=== PATIENT | female | born 2000 | race Caucasian/White ===

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

== ENCOUNTER 2019-07-25 15:33 | Outpatient (CLI) | payer OTHER ==
--- NOTE | 2019-07-25 17:33 | MRI Report ---
Reason: PAIN IN RT KNEE Procedure Date: 07/25/2019 Accession Number: [id number] / [id number] Procedure: MRI - Knee RT W/O CPT Code: Final Report FULL RESULT: EXAM: RIGHT KNEE MRI WITHOUT CONTRAST EXAM DATE: 07/25/2019 04:17 PM. CLINICAL HISTORY: Pain in right knee. COMPARISON: None. TECHNIQUE: Multiplanar, multisequence T1-weighted and fluid-sensitive sequences of the knee without contrast. Other: None. FINDINGS: Bones: No fractures or subluxations. No marrow edema. No bone lesions. Articular Cartilage: Unremarkable. Medial Meniscus: The medial meniscus is intact. Lateral Meniscus: The lateral meniscus is intact. Cruciate Ligaments: Mild edema and subtle intrasubstance distortion in the mid to distal anterior cruciate ligament. Majority of the fibers are intact. Posterior cruciate ligament normal in morphology. Collateral Ligaments: The medial collateral and lateral collateral ligamentous structures are intact. Tendons: The quadriceps, patellar, semimembranosus, and popliteus tendons are unremarkable. Musculature: No fatty atrophy. Subtle edema in the lateral head gastrocnemius muscle. Other: Minimal joint effusion. Minimal popliteal cyst.No loose bodies.The medial and lateral retinacula are intact. Subcutaneous soft tissues unremarkable. Mild edema in the superior lateral aspect of Hoffa's fat pad and to a lesser extent lateral pre-femoral fat pad. IMPRESSION: 1. Grade 1-2 sprain anterior cruciate ligament, likely subacute. Recommend correlate with history of trauma and mechanism of injury. 2. Mild strain lateral head gastrocnemius muscle. 3. Reactive edema versus impingement in the superior lateral aspect of Hoffa's fat pad and lateral pre-femoral fat pad. 4. Minimal joint effusion. 5. Menisci and collateral ligaments intact. [facility]
== END 2019-07-25 15:34 | disposition home or self-care (01) ==
LOC: DI 15:33
PROVIDERS: ATTEND Student in an Organized Health Care Education/Training Program
DX: S83.511A Sprain of anterior cruciate ligament of right knee, initial encounter (principal); M25.461 Effusion, right knee; S86.111A Strain of other muscle(s) and tendon(s) of posterior muscle group at lower leg level, right leg, initial encounter

== ENCOUNTER 2019-10-20 06:19 | Emergency (ER) | payer OTHER ==
[2019-10-20] MEDS ORDERED: IBUPROFEN 800 MG TABLET PO STA (06:29)
[2019-10-20] MEDS ORDERED: ONDANSETRON ODT 4 MG TABLET TL STA (06:29)
--- NOTE | 2019-10-20 06:37 | ED Physician Documentation ---
PD HPI FEMALE - Stated complaint Stated Complaint: FEMALE - Chief complaint Chief Complaint: Abd Pain - History obtained from History obtained from: Patient (Patient presented to the emergency room with severe abdominal cramps secondary to onset of menstrual period. Started early in the morning and has used 2 tampons over last to 3 hours. Patient is currently on control pill. This is her off week. She is expecting menstrual period however is never been this heavy or painful.She also feels nauseated because of the severe cramp and vomited once. No fever no chills no hematuria no dysuria. Last sexual intercourse was on Thursday and it was not painful. This is unusual for her and the menstral Blood has also been much heavier.) - History of Present Illness Timing - duration: Days (1) Timing - details: Gradual onset Review of Systems Ten Systems: 10 systems reviewed and negative Constitutional: reports: Reviewed and negative Eyes: reports: Reviewed and negative Ears: reports: Reviewed and negative Nose: reports: Reviewed and negative Throat: reports: Reviewed and negative Cardiac: reports: Reviewed and negative Respiratory: reports: Reviewed and negative GI: reports: Abdominal Pain, Nausea, Vomiting, Reviewed and negative : reports: Vaginal bleeding, Irregular menses Skin: reports: Reviewed and negative Musculoskeletal: reports: Reviewed and negative Neurologic: reports: Reviewed and negative Psychiatric: reports: Reviewed and negative Endocrine: reports: Reviewed and negative Immunocompromised: reports: Reviewed and negative PD PAST MEDICAL HISTORY - Past Medical History 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 - Past Surgical History Past Surgical History: No - Present Medications Home Medications: Ambulatory Orders Medication Instructions Recorded Confirmed Bcp 10/20/19 Ibuprofen 800 mg PO Q8HR #30 tablet 10/20/19 Ondansetron Odt [Zofran] 4 mg TL Q6H PRN #10 tablet 10/20/19 - Allergies Allergies/Adverse Reactions: Allergies Allergy/AdvReac Type Severity Reaction Status Date / Time No Known Drug Allergies Allergy Verified 10/20/19 06:35 - Social History Does the pt smoke?: No Smoking Status: Never smoker Does the pt drink ETOH?: No Does the pt have substance abuse?: No PD ED PE NORMAL - Vitals Vital signs reviewed: Yes - General General: Alert and oriented X 3, Other (Mild disstress because of abdominal pain) - HEENT HEENT: PERRL - Neck Neck: Supple, no meningeal sign - Cardiac Cardiac: RRR, No murmur - Respiratory Respiratory: Clear bilaterally - Abdomen Abdomen: Normal bowel sounds, Soft, Non distended, Other (Suprapubic area discomfort, central, mild guarding on deep palpation,) - Female Female : Other (QThick examination externally did not reveal any lesion. There is regular menstrual bleed. (Chaperoned by a female registered nurse)) - Derm Derm: Warm and dry - Extremities Extremities: No deformity - Neuro Neuro: Alert and oriented X 3 Eye Opening: Spontaneous Motor: Obeys Commands Verbal: Oriented GCS Score: 15 - Psych Psych: Normal mood, Normal affect Results - Vitals Vitals: Vital Signs - 24 hr 10/20/19 06:20 Temperature 36.8 C Heart Rate 76 Respiratory 16 Rate Blood Pressure 126/75 O2 Saturation 100 Oxygen O2 Source Room air - Labs Labs: Laboratory Tests 10/20/19 06:35 Urine Color YELLOW Urine Clarity CLEAR Urine pH 6.0 Ur Specific [place] 1.025 Urine Protein NEGATIVE Urine Glucose (UA) NEGATIVE Urine Ketones NEGATIVE Urine Occult Blood TRACE-INTA Urine Nitrite NEGATIVE Urine Bilirubin NEGATIVE Urine Urobilinogen 0.2 (NORMAL) Ur Leukocyte Esterase NEGATIVE Ur Microscopic Review NOT INDICATED Urine Culture Comments NOT INDICATED Urine HCG, Qual NEGATIVE PD MEDICAL DECISION MAKING - ED course ED course: Patient is experiencing menorrhalgia that is more excessive than usual. This is her off week while taking the control pill. She is expecting her menstrual period, however it is more painful than usual. She is reassessed at 650 and disclosed negative urinalysis and negative test. She is assured. She is asked to continue monitoring the amount of Menstrual output and continue taking ibuprofen 800 mg 3 times daily as needed. She will be given 2 to 3 days of work and follow-up with primary care doctor. If menstrual severe and painful, return to the emergency room for further management. Departure - Departure Disposition: 01 Home, Self Care Clinical Impression: Menorrhagia Qualifiers: Menorrahagia type: with onset of menstrual periods Qualified Code(s): N92.2 - Excessive menstruation at puberty Condition: Stable Instructions: Abdominal Pain Follow-Up: MALACHI ELY MD [Primary Care Provider] - Prescriptions: Ibuprofen 800 mg PO Q8HR #30 tablet Ondansetron Odt [Zofran] 4 mg TL Q6H PRN #10 tablet PRN Reason: Nausea / Vomiting Comments: Please monitor the amount of menstrual blood by counting the number of pads. Take ibuprofen 800 mg every 8 hours as needed for pain control. Zofran 4 mg sublingual for nausea. Take the next 2 days off and resume back to duty if you can tolerate it. Forms: Activity restrictions
[2019-10-20 06:43] LABS: BILIRUBIN,URINE NEGATIVE (NEGATIVE); GLUCOSE, URINE (UA) NEGATIVE (NEGATIVE); KETONES,URINE (UA) NEGATIVE (NEGATIVE); LEUKOCYTE ESTERASE, URINE NEGATIVE (NEGATIVE); NITRITE,URINE NEGATIVE (NEGATIVE); OCCULT BLOOD,URINE TRACE-INTA (NEGATIVE); PROTEIN,URINE NEGATIVE (NEGATIVE); UROBILINOGEN,URINE 0.2 (NORMAL) E.U./dL (NORMAL)
[2019-10-20 06:45] LABS: CLARITY,URINE CLEAR (CLEAR); HCG UR QUAL NEGATIVE
[2019-10-20 07:06] VITALS: BP 118/69
== END 2019-10-20 07:06 | disposition home or self-care (01) ==
LOC: ED 06:19
DX: N92.0 Excessive and frequent menstruation with regular cycle (principal)
CPT/HCPCS: 51701; 81003; 81025; 99283; 99284; A9270; Q0162; 81001; 87086

== ENCOUNTER 2020-02-20 15:11 | Emergency (ER) | payer OTHER ==
[2020-02-20 15:38] LABS: BASOPHILS % (AUTO) 0.4 %; EOSINOPHILS % (AUTO) 0.4 %; LYMPHOCYTES # (AUTO) 1.4 10^3/uL (1.5-3.5); LYMPHOCYTES % (AUTO) 13.1 %; MEAN CORPUSCULAR HEMOGLOBIN 28.8 pg (27.0-31.0); MEAN CORPUSCULAR HGB CONC 33.1 g/dL (32.0-36.0); MEAN CORPUSCULAR VOLUME 87.2 fL (81.0-99.0); MEAN PLATELET VOLUME 8.3 fL (7.9-10.8); MONOCYTES # (AUTO) 0.5 10^3/uL (0.0-1.0); MONOCYTES % (AUTO) 4.6 %; NEUTROPHILS # (AUTO) 8.8 10^3/uL (1.5-6.6); NEUTROPHILS % (AUTO) 81.2 %; PLT - PLATELET COUNT 348 10^3/uL (130-450); RED BLOOD COUNT 5.55 10^6/uL (4.20-5.40); RED CELL DISTRIBUTION WIDTH 13.2 % (12.0-15.0); WHITE BLOOD COUNT 10.8 x10^3/uL (4.8-10.8)
[2020-02-20 15:49] LABS: ALBUMIN/GLOBULIN RATIO 1.1 (1.0-2.2); BILIRUBIN,TOTAL 0.7 mg/dL (0.2-1.0); CALCIUM 9.2 mg/dL (8.5-10.3); CREATININE 0.6 mg/dL (0.4-1.0); TOTAL PROTEIN 7.7 g/dL (6.7-8.2)
[2020-02-20] MEDS ORDERED: SODIUM CHLORIDE 0.9% 1,000 ML IV STA ×2 (15:55)
[2020-02-20] MEDS ORDERED: METOCLOPRAMIDE 10 MG/2 ML VIAL IVP STA (15:55)
[2020-02-20] MEDS ORDERED: BUTALB/ACETAM/CAFF 50/325/40MG TABLET PO STA (15:59)
--- NOTE | 2020-02-20 16:01 | ED Physician Documentation ---
History of Present Illness - Stated complaint Stated Complaint: N/V, RUANO - Chief complaint Chief Complaint: Abd Pain - History obtained from History obtained from: Patient - History of Present Illness Timing: Today Pain level max: 6 Pain level now: 5 - Additonal information Additional information: 20-year-old female 1 para 0 presents to the emergency department with vomiting today followed by a headache. She is approximately 13 weeks . Has been followed by OB at the [facility]. No vaginal bleeding or discharge. Took Tylenol without relief. No trauma. No fever. No cough. No diarrhea. Review of Systems Ten Systems: 10 systems reviewed and negative Constitutional: denies: Fever, Chills Ears: denies: Ear pain Nose: denies: Rhinorrhea / runny nose, Congestion Respiratory: denies: Cough GI: reports: Vomiting. denies: Diarrhea : denies: Dysuria, Frequency, Hesitancy Skin: denies: Rash Musculoskeletal: denies: Neck pain, Back pain Neurologic: reports: Headache (Frontal, gradual onset. Throbbing.). 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 - Past Surgical History Past Surgical History: No - Present Medications Home Medications: Ambulatory Orders Medication Instructions Recorded Confirmed Bcp 10/20/19 Ibuprofen 800 mg PO Q8HR #30 tablet 10/20/19 Ondansetron Odt [Zofran] 4 mg TL Q6H PRN #10 tablet 10/20/19 Metoclopramide [Reglan] 10 mg PO Q6H PRN #20 tablet 02/20/20 - Allergies Allergies/Adverse Reactions: Allergies Allergy/AdvReac Type Severity Reaction Status Date / Time No Known Drug Allergies Allergy Verified 02/20/20 15:15 - Social History Does the pt smoke?: No Smoking Status: Never smoker Does the pt drink ETOH?: No Does the pt have substance abuse?: No - POLST Patient has POLST: No PD ED PE NORMAL - Vitals Vital signs reviewed: Yes - General General: Alert and oriented X 3, No acute distress, Well developed/nourished - HEENT HEENT: Atraumatic, PERRL, Ears normal, Moist mucous membranes, Pharynx benign - Neck Neck: Supple, no meningeal sign, No bony TTP - Cardiac Cardiac: RRR, Strong equal pulses - Respiratory Respiratory: No respiratory distress, Clear bilaterally - Abdomen Abdomen: Soft, Non tender, Non distended - Derm Derm: Warm and dry - Extremities Extremities: No calf tenderness / cord - Neuro Neuro: Alert and oriented X 3 - Psych Psych: Normal mood, Normal affect Results - Vitals Vitals: Vital Signs - 24 hr 02/20/20 02/20/20 02/20/20 15:15 15:17 17:31 Temperature 36.5 C 36.7 C Heart Rate 68 75 77 Respiratory 16 16 16 Rate Blood Pressure 110/68 128/65 105/74 O2 Saturation 98 99 100 Oxygen O2 Source Room air - Labs Labs: Laboratory Tests 02/20/20 02/20/20 02/20/20 15:25 15:25 15:25 WBC 10.8 RBC 5.55 H Hgb 16.0 Hct 48.4 H MCV 87.2 MCH 28.8 MCHC 33.1 RDW 13.2 Plt Count 348 MPV 8.3 Neut # (Auto) 8.8 H Lymph # (Auto) 1.4 L [place] # (Auto) 0.5 Eos # (Auto) 0.0 Baso # (Auto) 0.0 Absolute Nucleated RBC 0.00 Nucleated RBC % 0.0 Sodium 137 Potassium 3.6 Chloride 101 Carbon Dioxide 25 Anion Gap 11.0 BUN 8 Creatinine 0.6 Estimated GFR (MDRD) 126 Glucose 98 Calcium 9.2 Total Bilirubin 0.7 AST 26 ALT 36 Alkaline Phosphatase 44 Total Protein 7.7 Albumin 4.0 Globulin 3.7 Albumin/Globulin Ratio 1.1 Lipase 40 Serum HCG, Qual POSITIVE HCG, Quant Urine Color Urine Clarity Urine pH Ur Specific [place] Urine Protein Urine Glucose (UA) Urine Ketones Urine Occult Blood Urine Nitrite Urine Bilirubin Urine Urobilinogen Ur Leukocyte Esterase Ur Microscopic Review Urine Culture Comments 02/20/20 02/20/20 15:25 16:04 WBC RBC Hgb Hct MCV MCH MCHC RDW Plt Count MPV Neut # (Auto) Lymph # (Auto) [place] # (Auto) Eos # (Auto) Baso # (Auto) Absolute Nucleated RBC Nucleated RBC % Sodium Potassium Chloride Carbon Dioxide Anion Gap BUN Creatinine Estimated GFR (MDRD) Glucose Calcium Total Bilirubin AST ALT Alkaline Phosphatase Total Protein Albumin Globulin Albumin/Globulin Ratio Lipase Serum HCG, Qual HCG, Quant 31782.00 Urine Color YELLOW Urine Clarity CLEAR Urine pH 7.0 Ur Specific [place] 1.020 Urine Protein NEGATIVE Urine Glucose (UA) NEGATIVE Urine Ketones 40 H Urine Occult Blood NEGATIVE Urine Nitrite NEGATIVE Urine Bilirubin NEGATIVE Urine Urobilinogen 0.2 (NORMAL) Ur Leukocyte Esterase NEGATIVE Ur Microscopic Review NOT INDICATED Urine Culture Comments NOT INDICATED PD MEDICAL DECISION MAKING - ED course Complexity details: reviewed results, re-evaluated patient, considered differential, d/w patient, d/w family ED course: 20-year-old female given Reglan and Fioricet. Also given IV fluids. Headache resolved. Nausea resolved. Vomiting resolved. We will have her follow-up with her doctor for further care. Patient is well-appearing, nontoxic. Afebrile. No vaginal bleeding or discharge. Patient counseled regarding signs and symptoms for which I believe and urgent re-evaluation would be necessary. Patient with good understanding of and agreement to plan and is comfortable going home at this time This document was made in part using voice recognition software. While efforts are made to proofread this document, sound alike and grammatical errors may occur. Departure - Departure Disposition: 01 Home, Self Care Clinical Impression: Vomiting Qualifiers: Vomiting type: unspecified Vomiting Intractability: non-intractable Nausea presence: with nausea Qualified Code(s): R11.2 - Nausea with vomiting, unspecified Qualifiers: Weeks of gestation: 13 weeks Qualified Code(s): Z3A.13 - 13 weeks gestation of Condition: Good Instructions: ED Care, ED Nausea Vomiting Follow-Up: MALACHI ELY MD [Primary Care Provider] - Within 1 week Prescriptions: Metoclopramide [Reglan] 10 mg PO Q6H PRN #20 tablet PRN Reason: Nausea / Vomiting Comments: Drink plenty of water. Return if you worsen. Follow-up with your doctor for further care. Discharge Date/Time: 02/20/20 17:33
[2020-02-20 16:11] LABS: BILIRUBIN,URINE NEGATIVE (NEGATIVE); GLUCOSE, URINE (UA) NEGATIVE (NEGATIVE); KETONES,URINE (UA) 40 mg/dL (NEGATIVE); LEUKOCYTE ESTERASE, URINE NEGATIVE (NEGATIVE); NITRITE,URINE NEGATIVE (NEGATIVE); OCCULT BLOOD,URINE NEGATIVE (NEGATIVE); PROTEIN,URINE NEGATIVE (NEGATIVE); UROBILINOGEN,URINE 0.2 (NORMAL) E.U./dL (NORMAL)
[2020-02-20 16:15] LABS: CLARITY,URINE CLEAR (CLEAR)
[2020-02-20 16:16] LABS: HCG,QUALITATIVE BLOOD POSITIVE
[2020-02-20 17:31] VITALS: BP 105/74
== END 2020-02-20 17:33 | disposition home or self-care (01) ==
LOC: ED 15:11
DX: O21.0 Mild hyperemesis gravidarum (principal); O99.89 Other specified diseases and conditions complicating pregnancy, childbirth and the puerperium; R51 Headache; Z3A.13 13 weeks gestation of pregnancy
CPT/HCPCS: 36415; 80053; 81003; 83690; 84702; 84703; 85025; 96361; 96374; 99283; 99284; A9270; J2765; 81001; 87086

== ENCOUNTER 2020-04-03 20:52 | Emergency (ER) | payer OTHER ==
--- NOTE | 2020-04-03 21:14 | ED Physician Documentation ---
History of Present Illness - Stated complaint Stated Complaint: N/V/ABD PX - Chief complaint Chief Complaint: Abd Pain - History obtained from History obtained from: Patient (20 YO AD USN F at 19 weeks by LMP with vomiting and mild ruano. feeling baby move. no vag bleeding. no leakage of fluid. not worse ruano of life. not sudden in onset. not maximum in intensity. no fevers. no abd pain. no dysuria. has f/u appt tomorrow am with ob.) Review of Systems Constitutional: reports: Reviewed and negative Eyes: reports: Reviewed and negative Ears: reports: Reviewed and negative Nose: reports: Reviewed and negative Throat: reports: Reviewed and negative Cardiac: reports: Reviewed and negative Respiratory: reports: Reviewed and negative GI: reports: Nausea, Vomiting : reports: Reviewed and negative Skin: reports: Reviewed and negative Musculoskeletal: reports: Reviewed and negative Neurologic: reports: Reviewed and negative Psychiatric: reports: Reviewed and negative Endocrine: reports: Reviewed and negative Immunocompromised: reports: Reviewed and negative PD PAST MEDICAL HISTORY - Past Medical History 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 - Past Surgical History Past Surgical History: No - Present Medications Home Medications: Ambulatory Orders Medication Instructions Recorded Confirmed Bcp 10/20/19 Ibuprofen 800 mg PO Q8HR #30 tablet 10/20/19 Ondansetron Odt [Zofran] 4 mg TL Q6H PRN #10 tablet 10/20/19 Metoclopramide [Reglan] 10 mg PO Q6H PRN #20 tablet 02/20/20 Cephalexin [Keflex] 500 mg PO BID #6 capsule 04/03/20 Ondansetron Odt [Zofran Odt] 4 mg TL Q6H PRN #10 tablet 04/03/20 - Allergies Allergies/Adverse Reactions: Allergies Allergy/AdvReac Type Severity Reaction Status Date / Time No Known Drug Allergies Allergy Verified 04/03/20 20:59 - Social History Does the pt smoke?: No Smoking Status: Never smoker Does the pt drink ETOH?: No Does the pt have substance abuse?: No - Immunizations Immunizations are current?: Yes - POLST Patient has POLST: No PD ED PE NORMAL - Vitals Vital signs reviewed: Yes - General General: Alert and oriented X 3, No acute distress, Well developed/nourished - HEENT HEENT: PERRL, Moist mucous membranes, Pharynx benign - Neck Neck: Supple, no meningeal sign - Cardiac Cardiac: RRR, No murmur, Strong equal pulses - Respiratory Respiratory: No respiratory distress, Clear bilaterally - Abdomen Abdomen: Normal bowel sounds, Soft, Non tender, Non distended, No organomegaly, Other (consistent with 19 week gravid uterus.) - Back Back: No CVA TTP, No spinal TTP - Derm Derm: Normal color, Warm and dry, No rash - Extremities Extremities: No deformity, No tenderness to palpate, Normal ROM s pain, No edema, No calf tenderness / cord - Neuro Neuro: Alert and oriented X 3, queen's counsel 2-12 intact, No motor deficit, No sensory deficit, Normal speech - Psych Psych: Normal mood, Normal affect Results - Vitals Vitals: Vital Signs - 24 hr 04/03/20 04/03/20 20:59 22:20 Temperature 36.5 C Heart Rate 68 73 Respiratory 16 18 Rate Blood Pressure 121/58 L 98/57 L O2 Saturation 97 100 Oxygen O2 Source Room air - Labs Labs: Laboratory Tests 04/03/20 04/03/20 04/03/20 21:45 21:45 22:22 WBC 7.7 RBC 4.68 Hgb 13.6 Hct 41.2 MCV 88.0 MCH 29.1 MCHC 33.0 RDW 12.9 Plt Count 271 MPV 8.3 Neut # (Auto) 6.1 Lymph # (Auto) 1.1 L Lynn # (Auto) 0.4 Eos # (Auto) 0.0 Baso # (Auto) 0.0 Absolute Nucleated RBC 0.00 Nucleated RBC % 0.0 Sodium 138 Potassium 3.6 Chloride 100 L Carbon Dioxide 25 Anion Gap 13.0 BUN 8 Creatinine 0.6 Estimated GFR (MDRD) 126 Glucose 90 Calcium 8.6 Total Bilirubin 0.6 AST 30 ALT 46 Alkaline Phosphatase 45 Total Protein 6.4 L Albumin 3.6 Globulin 2.8 Albumin/Globulin Ratio 1.3 Lipase 37 Urine Color YELLOW Urine Clarity HAZY Urine pH 7.5 Ur Specific Sherwood 1.015 Urine Protein NEGATIVE Urine Glucose (UA) NEGATIVE Urine Ketones >=80 H Urine Occult Blood NEGATIVE Urine Nitrite NEGATIVE Urine Bilirubin NEGATIVE Urine Urobilinogen 0.2 (NORMAL) Ur Leukocyte Esterase TRACE H Urine RBC 0-5 Urine WBC 0-3 Ur Squamous Epith Cells FEW Squamous Amorphous Sediment Few Urine Bacteria Few Ur Microscopic Review INDICATED Urine Culture Comments INDICATED PD MEDICAL DECISION MAKING - ED course Complexity details: reviewed results, re-evaluated patient, considered differential (hyperemesis gravidarum. dehydration. patient treated with IVF and tylenol. RUANO resolved. tolerated po challenge. will f/u in 8 hours with her pcp/ob at [facility]. ua shows bacteria. will treat for Asymptomatic Bacteriuria 500 mg of Keflex twice daily for 3 days.), d/w patient, d/w family, other (Dopplershowed heart rateof 160.) Departure - Departure Disposition: 01 Home, Self Care Clinical Impression: Hyperemesis gravidarum, Asymptomatic bacteriuria during Condition: Stable Instructions: Hyperemesis Follow-Up: MALACHI ELY MD [Primary Care Provider] - Tomorrow Prescriptions: Cephalexin [Keflex] 500 mg PO BID #6 capsule Ondansetron Odt [Zofran Odt] 4 mg TL Q6H PRN #10 tablet PRN Reason: Nausea / Vomiting Comments: Hydrate well, follow-up with your physician tomorrow morning.Take antibiotics as directed for asymptomatic bacteriuria Discharge Date/Time: 04/03/20 23:03
[2020-04-03] MEDS ORDERED: ACETAMINOPHEN 325 MG TABLET PO STA (21:19)
[2020-04-03] MEDS ORDERED: ONDANSETRON 4 MG/2 ML VIAL IVP STA (21:19)
[2020-04-03] MEDS ORDERED: SODIUM CHLORIDE 0.9% 1,000 ML IV STA (21:19)
[2020-04-03 21:51] LABS: BASOPHILS % (AUTO) 0.4 %; EOSINOPHILS % (AUTO) 0.5 %; HGB - HEMOGLOBIN 13.6 g/dL (12.0-16.0); LYMPHOCYTES # (AUTO) 1.1 10^3/uL (1.5-3.5); LYMPHOCYTES % (AUTO) 13.7 %; MEAN CORPUSCULAR HEMOGLOBIN 29.1 pg (27.0-31.0); MEAN PLATELET VOLUME 8.3 fL (7.9-10.8); MONOCYTES # (AUTO) 0.4 10^3/uL (0.0-1.0); MONOCYTES % (AUTO) 5.6 %; NEUTROPHILS # (AUTO) 6.1 10^3/uL (1.5-6.6); NEUTROPHILS % (AUTO) 79.4 %; PLT - PLATELET COUNT 271 10^3/uL (130-450); RED BLOOD COUNT 4.68 10^6/uL (4.20-5.40); RED CELL DISTRIBUTION WIDTH 12.9 % (12.0-15.0); WHITE BLOOD COUNT 7.7 x10^3/uL (4.8-10.8)
[2020-04-03 22:06] LABS: ALBUMIN 3.6 g/dL (3.2-5.5); ALBUMIN/GLOBULIN RATIO 1.3 (1.0-2.2); BILIRUBIN,TOTAL 0.6 mg/dL (0.2-1.0); CALCIUM 8.6 mg/dL (8.5-10.3); CREATININE 0.6 mg/dL (0.4-1.0); TOTAL PROTEIN 6.4 g/dL (6.7-8.2)
[2020-04-03 22:28] VITALS: BP 98/57
[2020-04-03 22:30] LABS: BILIRUBIN,URINE NEGATIVE (NEGATIVE); GLUCOSE, URINE (UA) NEGATIVE (NEGATIVE); KETONES,URINE (UA) >=80 mg/dL (NEGATIVE); LEUKOCYTE ESTERASE, URINE TRACE (NEGATIVE); NITRITE,URINE NEGATIVE (NEGATIVE); OCCULT BLOOD,URINE NEGATIVE (NEGATIVE); PH,URINE 7.5 PH (5.0-7.5); PROTEIN,URINE NEGATIVE (NEGATIVE); UROBILINOGEN,URINE 0.2 (NORMAL) E.U./dL (NORMAL)
[2020-04-03 22:33] LABS: CLARITY,URINE HAZY (CLEAR)
[2020-04-03 22:40] LABS: AMORPHOUS SEDIMENT,UR Few /LPF; BACTERIA,URINE Few /HPF (None Seen); RBC,URINE 0-5 /HPF (0-5); SQUAMOUS EPITHELIAL CELL,UR FEW Squamous (<= Few)
== END 2020-04-03 23:03 | disposition home or self-care (01) ==
LOC: ED 20:52
DX: O21.0 Mild hyperemesis gravidarum (principal); O99.89 Other specified diseases and conditions complicating pregnancy, childbirth and the puerperium; R82.71 Bacteriuria; R51 Headache; Z3A.19 19 weeks gestation of pregnancy
CPT/HCPCS: 36415; 80053; 81001; 83690; 85025; 87086; 96361; 96374; 99283; A9270; 81003

== ENCOUNTER 2020-08-01 08:00 | Outpatient (CLI) | payer OTHER | END 2020-08-01 23:59 | disposition home or self-care (01) | LOC: LAB.R 08:00 | PROVIDERS: ATTEND Nurse Practitioner Obstetrics & Gynecology | DX: Z36.85 Encounter for antenatal screening for Streptococcus B (principal) | CPT/HCPCS: 87797 ==

== ENCOUNTER 2020-08-03 16:18 | Outpatient (CLI) | payer OTHER ==
--- NOTE | 2020-08-03 22:59 | Ultrasound Report ---
PROCEDURE: OB F/U or Repeat INDICATIONS: GROWTH ABNORMALITY OUTSIDE/PRIOR DATING DATA: Last menstrual period (LMP): 11/19/2019. LMP-based estimated date of delivery (MCKINLEY): 08/25/2020. First dating scan (date and location): 02/01/2020 (see scanned medical record from provider's office). Estimated date of delivery ([facility]) from first dating scan: 08/25/2020. TECHNIQUE: Real-time scanning was performed of the fetus, with image documentation and biometric measurements. Endovaginal scanning: Not performed COMPARISON: 03/27/2020, 04/13/2020 FINDINGS: General: A single living intrauterine gestation is present. Presentation: Vertex Placenta: Placental position is anterior, without previa. Amniotic fluid index: 11.1 cm, the 25th percentile for gestational age. heart rate: 139 beats per minute. Maternal cervical canal: 3.8 cm long; normal length is 2.5 cm or more. biometrics: Biparietal diameter: 8.7 cm, 35 weeks, 1 day Head circumference: 30.5 cm, 34 weeks, 0 days Abdominal circumference: 30.1 cm, 34 weeks, 0 days Femur length: 6.7 cm, 34 weeks, 2 days Estimated gestational age from initial scan: 36 weeks, 6 days. Composite gestational age from present scan: 34 weeks, 3 days Estimated weight and percentile: 2381 g, 5th percentile Measurement variability in biometric dating: +/- 10 days from 12-20 weeks gestation, +/- 2 weeks from 20-30 weeks gestation, +/- 3 weeks at 30 weeks gestation or more. Other: Umbilical cord Dopplers range from 2.4-2.6, normal. IMPRESSION: 1. Single living intrauterine with appropriate growth since the prior study. 2. Estimated weight is at the 5th percentile, small for gestational age. Of note, this is consi stent with the weight percentile at the patient's anatomy scan on 03/27/2020. 3. Normal umbilical cord Dopplers. 4. Normal amniotic fluid volume. Reviewed by: Radha León MD on 08/03/2020 10:57 PM PST Approved by: Radha León MD on 08/03/2020 10:57 PM PST Station ID: [id number]
== END 2020-08-03 16:19 | disposition home or self-care (01) ==
LOC: DI 16:18
PROVIDERS: ATTEND Nurse Practitioner Obstetrics & Gynecology
DX: O36.5930 Maternal care for other known or suspected poor fetal growth, third trimester, not applicable or unspecified (principal)

== ENCOUNTER 2020-08-07 15:26 | Outpatient (CLI) | payer OTHER ==
[2020-08-07 16:04] VITALS: BP 119/81
--- NOTE | 2020-08-07 17:26 | PROVIDER PROGRESS NOTE ---
- HPI Chief Complaint: Decreased movement Current : Current EDU 08/25/20 Gestation 37 Weeks and 3 Days 1 Vital Signs Temperature 36.7 C 08/07/20 15:46 Heart Rate 71 08/07/20 15:46 Respiratory Rate 16 08/07/20 15:46 Blood Pressure 119/81 H 08/07/20 15:46 O2 Saturation 99 08/07/20 15:46 Temperature 36.7 C 08/07/20 15:46 Heart Rate 71 08/07/20 15:46 Respiratory Rate 16 08/07/20 15:46 Blood Pressure 119/81 H 08/07/20 15:46 O2 Saturation 99 08/07/20 15:46 - Procedures OB Procedure Performed: NST Diagnosis/Indication for NST: Decreased movement NST Procedure: NST Procedure Start Date 08/07/20 Start Time 15:41 Stop Time 16:28 Vibroacoustic Stimulation Used No Patient States Movement No: no movement since last night - Plan Plan: S: Mitzy is a 20yo @ 36.5wks gestation by 9.3wk U/S who presents today after phoning through the answering service stating she has not felt any movement since last night. She denies VB, Lof, or contractions. She states she has tried to drink cold water and eat food in attempt to wake her baby up but it has not worked. She was directed to present to [facility]. She presents with her partner Ty. O: FHR baseline 140s, moderate variability, + accels no decels. Pt unable to appreciate movement after being here for 45 minutes and a BPP was ordered. Shortly after BPP was ordered the patient drank apple juice and was brought a meal tray. At that time movement increased significantly and pt states she can appreciate several movements at this time. No contractions appreciated via tocometry Normocephalic, atraumatic. Heart RRR. Abdomen gravid, soft, and nontender. Bilateral LE's no edema. NST performed 08/07/2020 NST read 08/07/2020 NST reactive. FHR baseline 140s, moderate variability, + accels, no decels A: 20yo @ 36.5wks gestation by 9.3wk U/S FHR Category I GBS neg P: BPP cancelled secondary to reassuring FHR tracing and pt feeling significant movement following cold juice and eating dinner. PTL precautions reviewed and discussed warning s/sx and when to present. Reviewed FM monitoring and advised daily kick counting -advised her to present earlier than 8 hours after no movement (10 movements in 2 hours). Pt released home with precautions. Advised to keep appt tomorrow at 1100 with Katie Kunz CNM/TJ or present sooner PRN. Pt and both verbalized understanding and agree to above plan. They deny further questions or concerns at this time.
== END 2020-08-07 17:35 | disposition home or self-care (01) ==
LOC: WFO 15:26 → FBP 15:27 → WFO 17:35
PROVIDERS: ATTEND Nurse Practitioner Obstetrics & Gynecology
DX: O36.8130 Decreased fetal movements, third trimester, not applicable or unspecified (principal); Z3A.36 36 weeks gestation of pregnancy
CPT/HCPCS: 59025

== ENCOUNTER 2020-08-14 11:38 | Outpatient (CLI) | payer OTHER ==
--- NOTE | 2020-08-14 13:09 | Ultrasound Report ---
PROCEDURE: OB Biophysical Profile INDICATIONS: GROWTH ABNORMALITY, WEEKLY BPP AND AUGUSTINE OUTSIDE/PRIOR DATING DATA: Last menstrual period (LMP): 11/19/2019. LMP-based estimated date of delivery ([facility]CK[facility]LEY): 08/25/2020. First dating scan (date and location): 02/01/2020. Estimated date of delivery ([facility]) from first dating scan: 08/25/2020. TECHNIQUE: Real-time scanning was performed of the fetus, with image documentation and biometric elyssa surements. Biophysical profile was also obtained. Endovaginal scanning: Not performed COMPARISON: 08/03/2020 FINDINGS: General: A single living intrauterine gestation is present. Presentation: Vertex Placenta: Placental position is anterior, without previa. Amniotic fluid index: 15.8 cm, 65th percentile for gestational age. heart rate: 144 beats per minute. Maternal cervical canal: 3.4 cm long; normal length is 2.5 cm or more. Estimated gestational age from prior imagin weeks and 3 days. Biophysical profile: Tone: 2 points. Movement: 2 points. Respiration: 2 points. Largest pocket of fluid: 2 points. (5.0 cm) Umbilical artery Doppler: Normal cord Doppler waveforms and S/D ratios. IMPRESSION: Single living intrauterine gestation with estimated gestational age of approximately 38 weeks and 3 d ays. Biophysical profile score of 8 out of 8. Normal umbilical artery Doppler waveforms as well as S/D ratios. Reviewed by: Alejandro Ybarra MD on 08/14/2020 1:08 PM PST Approved by: Alejandro Ybarra MD on 08/14/2020 1:08 PM PST Station ID: [id number]
--- NOTE | 2020-08-15 09:33 | PROCEDURE REPORT ---
- HPI Diagnosis/Indication for NST: Intrauterine growth restriction - NST Procedure NST Procedure Start Time 15:41 Stop Time 16:28 - Results and Plan Findings/Impression: NST perform date: 08/14/2020 NST read date: 08/14/2020 Mitzy is a 20yo at 37.5wks gestation who presents with IUGR (10.2%) Reports FM, denies concerns or complaints today O: FHTs moderate variability, accels, no decels RN reports regular arrhythmia audible, but not tracing. BPP 8/8, AUGUSTINE 65% A: FHT- Category I BPP/AUGUSTINE- reassuring IUGR P: Continue with twice weekly NSTs with once weekly BPP/AUGUSTINE F/U in office for regular visits Induction scheduled for 39.0wks Consulted with MD. No current changes in plan r/t arrhythmia due to scheduled induction in 9 days, and reassuring assessment.
== END 2020-08-14 11:39 | disposition home or self-care (01) ==
LOC: DI 11:38
PROVIDERS: ATTEND Advanced Practice Midwife
DX: O36.5930 Maternal care for other known or suspected poor fetal growth, third trimester, not applicable or unspecified (principal); Z3A.37 37 weeks gestation of pregnancy

== ENCOUNTER 2020-08-14 12:20 | Outpatient (CLI) | payer OTHER ==
[2020-08-14 14:25] VITALS: BP 118/72
--- NOTE | 2020-08-17 08:51 | PROCEDURE REPORT ---
- HPI Diagnosis/Indication for NST: Intrauterine growth restriction Current EDU 08/30/20 Gestation 37 Weeks and 5 Days 1 Para 0 Vital Signs Temperature 36.8 C 08/14/20 12:35 Heart Rate 75 08/14/20 12:35 Respiratory Rate 18 08/14/20 12:35 Blood Pressure 118/72 08/14/20 12:35 O2 Saturation 98 08/14/20 12:35 Temperature 36.8 C 08/14/20 12:35 Heart Rate 75 08/14/20 12:35 Respiratory Rate 18 08/14/20 12:35 Blood Pressure 118/72 08/14/20 12:35 O2 Saturation 98 08/14/20 12:35 - NST Procedure NST Procedure Start Date 08/14/20 Start Time 12:30 Stop Time 14:00 Vibroacoustic Stimulation Used No Patient States Movement Yes - Results and Plan Findings/Impression: REACTIVE NST Plan: CONTINUE ANTINATAL TESTING
== END 2020-08-14 14:00 | disposition home or self-care (01) ==
LOC: WFO 12:20 → FBP 12:30 → WFO 14:00
PROVIDERS: ATTEND Obstetrics & Gynecology
DX: O36.5930 Maternal care for other known or suspected poor fetal growth, third trimester, not applicable or unspecified (principal); Z3A.37 37 weeks gestation of pregnancy
CPT/HCPCS: 59025; 99212; 99213

== ENCOUNTER 2020-08-16 00:42 | Inpatient (IN) | payer OTHER ==
[2020-08-16 01:25] LABS: RUPTURE OF MEMBRANES PLUS POSITIVE (NEGATIVE)
[2020-08-16] MEDS ORDERED: METHYLERGONOVINE 0.2 MG/ML VIAL IM PRN (01:28)
[2020-08-16] MEDS ORDERED: LIDOCAINE-MPF 1% 30 ML VIAL ID PRN (01:28)
[2020-08-16] MEDS ORDERED: ONDANSETRON 4 MG/2 ML VIAL IVP PRN ×2 (01:28→02:51)
[2020-08-16] MEDS ORDERED: miSOPROStoL 200 MCG TABLET BC PRN (01:28)
[2020-08-16] MEDS ORDERED: SODIUM CHLORIDE FLUSH 0.9% 10 ML SYRINGE IVP PRN (01:28)
[2020-08-16] MEDS ORDERED: fentaNYL 100 MCG/2 ML VIAL IVP PRN (01:28)
[2020-08-16] MEDS ORDERED: CARBOPROST TROMETHAMINE 250 MCG/ML AMP IM PRN (01:28)
[2020-08-16] MEDS ORDERED: OXYTOCIN 10 UNIT/ML VIAL IM PRN (01:28)
[2020-08-16] MEDS ORDERED: OXYTOCIN/SODIUM CHLORIDE 500 ML IV PRN (01:28)
[2020-08-16] MEDS ORDERED: TRANEXAMIC ACID 1,000 MG in SODIUM CHLORIDE 0.9% 100ML 100 ML IV PRN (01:28)
[2020-08-16] MEDS ORDERED: LACTATED RINGERS 1,000 ML IV SCH (02:00)
[2020-08-16] MEDS ORDERED: AMPICILLIN 2 GM in SODIUM CHLORIDE 0.9% MINIBAG 100 ML IV ONE (02:00)
[2020-08-16] MEDS ORDERED: ROPIVACAINE 0.2% 200 MG/100 ML BAG EP ONE (02:22)
[2020-08-16] MEDS ORDERED: NALBUPHINE 10 MG/ML AMP IVP PRN (02:51)
[2020-08-16] MEDS ORDERED: NALOXONE 0.4 MG/ML VIAL IVP PRN (02:51)
[2020-08-16] MEDS ORDERED: diphenhydrAMINE INJ 50 MG/ML VIAL IVP PRN (02:51)
[2020-08-16] MEDS ORDERED: ROPIVACAINE 0.2% 200 MG/100 ML BAG EP PRN (02:51)
[2020-08-16] MEDS ORDERED: ePHEDrine 50 MG/ML VIAL IVP PRN (02:51)
[2020-08-16] MEDS ORDERED: METOCLOPRAMIDE 10 MG/2 ML VIAL IVP PRN (02:51)
--- NOTE | 2020-08-16 02:54 | ANESTHESIA ---
Pre-Anesthesia VS, & Labs - Diagnosis term labor, IUP - Procedure epidural for Vital Signs: Temp Pulse Resp BP Pulse Ox 37.1 C 87 18 138/87 H 99 08/16/20 01:53 08/16/20 01:53 08/16/20 01:53 08/16/20 01:53 08/16/20 01:03 Height: 5 ft 7 in Weight (kg): 87.543 kg Body Mass Index: 30.2 BMI Classification: Obese - NPO Last Fluid Intake: t/o day Last Food Intake: dinner - Is Patient ?: Yes - Lab Results Lab results reviewed: Yes Home Medications and Allergies Active Medications Acetaminophen (Tylenol) 650 mg PO Q6H ANGELICA Carboprost Tromethamine (Hemabate) 250 mcg IM Q15M PRN PRN Reason: Step 4: Hemorrhage protocol Stop: 08/21/20 01:29 Fentanyl (Fentanyl) 50 mcg IVP Q1H PRN PRN Reason: PAIN Lactated Ringer's (Lr) 1,000 mls @ 150 mls/hr IV .Q6H40M ANGELICA Last Admin: 08/16/20 02:09 Dose: 150 mls/hr Documented by: Oxytocin/Sodium Chloride (Pitocin/Sodium Chloride) 500 mls @ 999 mls/hr IV PRN PRN; Protocol PRN Reason: POST- HEMORR PREVENTION Stop: 08/21/20 01:29 Tranexamic Acid 1,000 mg/ (Sodium Chloride) 110 mls @ 660 mls/hr IV .ONCE PRN PRN Reason: EBL >1200mL and within 3hr Stop: 08/21/20 01:29 Ampicillin Sodium 2 gm/ Sodium (Chloride) 100 mls @ 100 mls/hr IV ONCE ONE Stop: 08/16/20 02:59 Last Admin: 08/16/20 02:09 Dose: 100 mls/hr Documented by: Ampicillin Sodium 1 gm/ Sodium (Chloride) 100 mls @ 200 mls/hr IV Q4H [facility] Lidocaine HCl (Xylocaine-Mpf 1% Vial) 30 ml ID .ONCE PRN PRN Reason: PERINEAL REPAIR Stop: 08/21/20 01:29 Methylergonovine Maleate (Methergine Inj) 0.2 mg IM .ONCE PRN PRN Reason: Step 2: Hemorrhage protocol Stop: 08/21/20 01:29 Misoprostol (Cytotec) 800 mcg BC .ONCE PRN PRN Reason: Step 3: Hemorrhage protocol Stop: 08/21/20 01:29 Ondansetron HCl (Zofran Inj) 4 mg IVP Q4H PRN PRN Reason: Nausea / Vomiting Oxytocin (Pitocin) 10 unit IM .ONCE PRN PRN Reason: Step one: If no IV access Stop: 08/21/20 01:29 Sodium Chloride (Normal Saline Flush 0.9%) 10 ml IVP PRN PRN PRN Reason: NEEDED PER PROVIDER ORDERS Sodium Chloride (Normal Saline Flush 0.9%) 10 ml IVP 0100,0900,1700 ANGELICA Bcp 10/20/19 Allergies/Adverse Reactions: Allergies Allergy/AdvReac Type Severity Reaction Status Date / Time No Known Drug Allergies Allergy Verified 04/03/20 20:59 Anes History & Medical History - Anesthetic History Anesthesia Complications: reports: Post-Operative Nausea/Vomiting (s/p wisdom teeth extraction) Family history of Anesthesia Complications: Denies Family history of Malignant Hyperthermia: Denies - Medical History Cardiovascular: reports: None Pulmonary: reports: None Gastrointestinal: reports: GERD Urinary: reports: None Neuro: reports: None Musculoskeletal: reports: None Blood Disorders: reports: None Skin: reports: None Smoking Status: Never smoker Psychosocial: reports: No issues indicated History of Cancer?: No - Surgical History Other Past Surgical History: wisdom teeth extraction Exam General: Alert, Oriented x3, Cooperative Dental: WNL Mouth Openin Fingerbreadth Neck Mobility: Normal Mallampati classification: II Thyromental Distance: greater than 6 cm Respiratory: No respiratory distress, No accessory muscle use Cardiovascular: Regular rate Neurological: Normal speech Mental/Cognitive Status: Alert/Oriented X3, Normal for patient Cognitive Status: Within normal limits Plan Anesthesia Type: Epidural Consent for Procedure(s) Verified and Reviewed: Yes Code Status: Attempt Resuscitation ASA classification: 2-Mild systemic disease Is this case an emergency?: No
[2020-08-16 03:16] LABS: BASOPHILS % (AUTO) 0.5 %; EOSINOPHILS # (AUTO) 0.1 10^3/uL (0.0-0.7); EOSINOPHILS % (AUTO) 0.6 %; HGB - HEMOGLOBIN 12.6 g/dL (12.0-16.0); LYMPHOCYTES # (AUTO) 2.2 10^3/uL (1.5-3.5); LYMPHOCYTES % (AUTO) 25.6 %; MEAN CORPUSCULAR HEMOGLOBIN 28.8 pg (27.0-31.0); MEAN CORPUSCULAR HGB CONC 32.9 g/dL (32.0-36.0); MEAN CORPUSCULAR VOLUME 87.4 fL (81.0-99.0); MEAN PLATELET VOLUME 9.2 fL (7.9-10.8); MONOCYTES # (AUTO) 0.8 10^3/uL (0.0-1.0); MONOCYTES % (AUTO) 9.3 %; NEUTROPHILS # (AUTO) 5.4 10^3/uL (1.5-6.6); NEUTROPHILS % (AUTO) 63.5 %; PLT - PLATELET COUNT 320 10^3/uL (130-450); RED BLOOD COUNT 4.38 10^6/uL (4.20-5.40); WHITE BLOOD COUNT 8.5 x10^3/uL (4.8-10.8)
[2020-08-16] MEDS ORDERED: HYDROCORTISONE 1% CREAM 28 GM TUBE PR PRN (04:37)
[2020-08-16] MEDS ORDERED: WITCH HAZEL/GLYCERIN 1 PAD TOP PRN (04:37)
--- NOTE | 2020-08-16 04:42 | HISTORY & PHYSICAL EXAMINATION ---
Admit History - Visit Reason Visit Reason: Contractions, Membranes rupture - : 1 Parity: 0 Premature: 0 Ectopic: 0 : 0 Risk/History: positive: None Complications This : positive: Other (IUGR) Smoking Status: Never smoker - Mother's Labs Mother's Blood Type: positive: B Mother's RH: positive: Positive GBS: positive: Group B Strep Positive Rubella Status: positive: Immune - Other Maternal History Other Maternal History: -20yo at 37.6wks gestation who presents to Labor and Delivery after a loss of clear fluid at home and the start of contractions -Reports movement -Denies VB - care with [facility] which has been adequate starting at 34.3wks, after transfer from [facility] - Complications *IUGR 10.2% -Dating Criteria *US at 9.3wks c/w LMP -OB Hx *G1: current -Medications * vitamin-daily -Allergies *NKDA -Medical History *Non contributory -Surgical History *Tooth Extraction 2011 -Family History *Non contributory -Social History *Non contributory - Labs, Immunizations, and Findings *B pos/Rubella immune *Genetic testing: Serum integrated screen -neg; CF neg *FAS: 03/27/2020 WNL with the exception of poor visualization of cardiac structures and spine. Anterior placenta, no previa. Size (5th percentile) *04/13/2020 completion FAS WNL. *F/u growth (measured in 5th percentile at 20wks with no f/u) - Due date adjusted to date of first scan. Efw 10.2% per WHO calculator. *Glucola 68 *Influenza: 07/17/2020 *TDAP 06/15/2020 *GBS collected @35.6 weeks- POSITIVE *HSV: denies self and partner *Breast pump Rx- has pump *MOD: Anticipate ; Partner Ty; It's a GIRL - Triny; "wait and see" approach *pp contraception: *pap: collected - report requested/pending -SVE deferred due to ROM -EFW by gary's 6# -FHTs per flowsheet -Assessment *20yo at 37.6wks with SROM and active labor * Heart Tones- Category I -Plan *Admit to L&D *Monitoring- Continuous *Comfort measures available- position changes, whirlpool tub, fentanyl, and epidural per maternal preference *Diet/Activity- per maternal preference *Anticipate Meds/Allgy - Home Medications Home Medications: Ambulatory Orders Medication Instructions Recorded Confirmed Bcp 10/20/19 Ibuprofen 800 mg PO Q8HR #30 tablet 10/20/19 Ondansetron Odt [Zofran] 4 mg TL Q6H PRN #10 tablet 10/20/19 Metoclopramide [Reglan] 10 mg PO Q6H PRN #20 tablet 02/20/20 Cephalexin [Keflex] 500 mg PO BID #6 capsule 04/03/20 Ondansetron Odt [Zofran Odt] 4 mg TL Q6H PRN #10 tablet 04/03/20 - Allergies Allergies/Adverse Reactions: Allergies Allergy/AdvReac Type Severity Reaction Status Date / Time No Known Drug Allergies Allergy Verified 04/03/20 20:59 Review of Systems - All Other Systems All Other Systems: reports: Reviewed and negative Physical - Abdominal Exam Vital Signs: Temp Pulse Resp BP Pulse Ox 37.1 C 87 18 138/87 H 99 08/16/20 01:53 08/16/20 01:53 08/16/20 01:53 08/16/20 01:53 08/16/20 01:03 Contraction Frequency (min/apart): 2-3 Contraction Intensity: positive: Moderate to strong Uterine Resting Tone: positive: Soft - Monitoring Heart Rate Baseline: 140 Strip Review: positive: Category I (moderate variability, accels, no decels, on admit. Cat II once compelte with elevated baseline and decels noted) - Presentation Presentation: positive: Vertex Plan for Labor - Plan For Labor I expect patient to be DC'd or transferred within 96 hours.: Yes
--- NOTE | 2020-08-16 04:43 | DELIVERY NOTE ---
Delivery Note - Labor Labor: positive: Spontaneous - Delivery Method Delivery Method: positive: Spontaneous vaginal delivery - Presentation Presentation: positive: Vertex, JONNY - right occiput anterior - Nuchal Cord Nuchal Cord: positive: Present (loose x1) - Amniotic Fluid Description Amniotic Fluid Description: positive: Clear - Laceration Laceration: positive: 1st degree, Labial (right) - Suture Suture Type: positive: Vicryl Suture Size: positive: 3-0 - Delivery Outcome Delivery Outcome: positive: Livebirth - [place] : positive: Stimulated, [place] used sex: positive: Female : 8 : 9 - Cord Cord: positive: 3 vessels - Placenta Placenta: positive: Intact, Spontaneous (small) - Estimated Blood Loss Estimated Blood Loss (in cc): 200 - Post Delivery Events Post Delivery Events: positive: No post delivery events - Delivery Comments (Free Text/Narrative) Delivery Comments (Free Text/Narrative): Note: Labor: This 20 year old, , @37.9wks gestation by 9.3 week Ultrasound, confirmed by LMP, presented @ 0045 in active labor with complaints of loss of fluid at 2330, confirmed by ROM+. Fluid was noted to be clear and moderate. Cervical exam was deferred. FHR pattern demonstrated 140 baseline in a Category I pattern; tachycardia noted at 0344 that persisted until . Normal labor course. Epidural placed upon maternal request. She progressed to c/c/+1 at 0337. : Normal of a 2745gm female , Triny, on 08/16/2020 @ 0411. Nuchal present x1 and loose. The was placed on maternal abdomen, stimulated, dried and placed skin to skin. Apgars 8 at one minute and 9 at five minutes. The umbilical cord was allowed to stop pulsating at which time it was doubly clamped by CNM and cut by FOB. Pitocin administered via IV for hemostasis. Fundal massage and gentle cord traction applied for active third stage management. Cord blood was obtained. Placenta delivered spontaneously and intact at 0420, noted to be small in size. Three vessel cord. EBL 200mL. Fourth Stage: Uterine fundus firm and without excessive bleeding. The perineum, vagina, and cervix were inspected and found to be intact, except for a small first degree right labial laceration. This was repaired with a 3-0 vicryl, and was repaired in standard fashion under sterile conditions. Vaginal examination following repair was done. Tissues well approximated. initiated. Family bonding well. Both mother and baby are in stable condition.
[2020-08-16] MEDS: ACETAMINOPHEN 325 MG TABLET PO SCH ×4 (05:22→23:52)
[2020-08-16] MEDS: IBUPROFEN 600 MG TABLET PO SCH ×4 (05:23→23:53)
[2020-08-16] MEDS ORDERED: AMPICILLIN 1 GM in SODIUM CHLORIDE 0.9% MINIBAG 100 ML IV SCH (06:00)
[2020-08-16] MEDS ORDERED: SODIUM CHLORIDE FLUSH 0.9% 10 ML SYRINGE IVP SCH (09:00)
[2020-08-16] MEDS: DOCUSATE SODIUM 100 MG CAPSULE PO PRN ×2 (11:32→23:53)
[2020-08-17] MEDS: ACETAMINOPHEN 325 MG TABLET PO SCH ×3 (07:46→19:56)
[2020-08-17] MEDS: IBUPROFEN 600 MG TABLET PO SCH ×3 (07:47→19:56)
--- NOTE | 2020-08-17 09:27 | PROVIDER PROGRESS NOTE ---
Subjective - Prog Note Date Prog Note Date: 08/17/20 Prog Note Time: 09:27 - Subjective Pt reports feeling: Improved Subjective: S: Mitzy is resting in bed, eating breakfast. Baby is sleeping with FOB, who is supportive at bedside. She reports her bleeding as moderate, but not heavy, and her pain as well controlled with PO meds. She says they are with ease. Desires to go home tomorrow. O: Fundus firm perineum intact lochia rubra A: 20yo s/p on 08/16/2020 on pp day 1 Normal course P: Continue with routine care Evaluate for discharge home tomorrow Objective - Vital Signs/Intake & Output Vital Signs: Vital Signs x48h Temp Pulse Resp BP Pulse Ox 08/17/20 08:16 37 C 76 16 122/61 99 08/17/20 04:00 36.9 C 68 16 124/68 99 Intake & Output: Intake & Output 08/14/20 08/15/20 08/16/20 08/17/20 23:59 23:59 23:59 23:59 Intake Total 840 Output Total 1450 Balance -610 - Lab Results Fish Bones: 08/16/20 02:00
[2020-08-17] MEDS: DOCUSATE SODIUM 100 MG CAPSULE PO PRN (19:56)
[2020-08-18] MEDS: ACETAMINOPHEN 325 MG TABLET PO SCH ×2 (01:53→07:54)
[2020-08-18] MEDS: IBUPROFEN 600 MG TABLET PO SCH ×2 (01:54→07:54)
--- NOTE | 2020-08-18 02:32 | Discharge Plan ---
Discharge Plan Problem Reviewed?: Yes Disposition: Home, Self Care Condition: Good Additional Instructions or Follow Up instructions: Follow up with midwifery at 1 and 6 wks No Smoking: If you smoke, Please STOP! Call for help. Follow-up with: Katie Kunz ARNP [Provider Admit Priv/Credential] -
--- NOTE | 2020-08-18 02:32 | DISCHARGE SUMMARY ---
Discharge Summary - [facility] History of Present Illness: Admit Date 08/16/2020 Discharge Date 08/18/2020 Diagnosis on Admission: 1. A 20yo at 37.6 week intrauterine 2. Early Active Labor and SROM 3. Suspected IUGR 4. GBS positive Diagnosis on Discharge 1. A 20yo s/p spontaneous vaginal delivery on 08/16/2020 2. Normal recovery 3. AGA 4. Inadequate GBS coverage Brief History: She is a patient at [facility] who presented on 08/16/2020 with complaints of contractions and report of loss of clear fluid at home. ROM+ positive. The patient was found to contract every 2 to 5 minutes and her cervical exam was deferred. She spontaneously delivered a viable female named Triny. Apgars were 8 and 9- and 1 and 5 minutes respectively. EBL 200mL. The patient has a 1st degree right labial laceration that was repaired with 3-0 vicryl in usual fashion under sterile conditions. She has been doing well in her course. She is ambulating and to lerating a regular diet. She is urinating without difficulty and her lochia is normal. Her pain is well controlled with oral medications. She will be discharged home today on day #2 without need for prescriptions . She intends to follow up with Midwifery at [facility] in 1, and 6 weeks for routine visit. She has been given precautions to call if she has any worsening fevers, chills, abdominal pain, increased bleeding or foul smelling vaginal lochia. - ALLERGIES Allergies/Adverse Reactions: Allergies Allergy/AdvReac Type Severity Reaction Status Date / Time No Known Drug Allergies Allergy Verified 04/03/20 20:59 - MEDICATIONS Home Medications: Ambulatory Orders Medication Instructions Recorded Confirmed Bcp 10/20/19 Ibuprofen 800 mg PO Q8HR #30 tablet 10/20/19 Ondansetron Odt [Zofran] 4 mg TL Q6H PRN #10 tablet 10/20/19 Metoclopramide [Reglan] 10 mg PO Q6H PRN #20 tablet 02/20/20 Cephalexin [Keflex] 500 mg PO BID #6 capsule 04/03/20 Ondansetron Odt [Zofran Odt] 4 mg TL Q6H PRN #10 tablet 04/03/20 - LABS Result Diagrams: 08/16/20 02:00
[2020-08-18] MEDS: DOCUSATE SODIUM 100 MG CAPSULE PO PRN (07:54)
[2020-08-18 10:35] VITALS: BP 122/70
--- NOTE | 2020-08-18 11:49 | Labor Flowsheet ---
Labor Flowsheet Datetime Report Generated by CPN: 08/18/2020 11:49 Datetime: 08/18/2020 10:03 VITAL SIGNS NBP Sys/Alethea/Mean (mmHg): 122 : 70 : 81 Pulse: 89 COMMUNICATION LaborFlag: Labor Datetime: 08/17/2020 18:39 SpO2 (%): 100 Datetime: 08/16/2020 03:39 UTERINE ACTIVITY Monitor Mode: External Frequency (min): 2 Quality: Strong Duration (sec): 60 Pattern: Normal: <= 5 Contractions in 10 Minutes Resting Tone (Palpate): Relaxed ASSESSMENT A Monitor Mode: External US FHR Baseline Rate : 165 Variability: Moderate 6-25 bpm Accelerations: 15X15 Decelerations: Variable Category: Category II Datetime: 08/16/2020 03:37 Actions for Decelerations: Side to Side; Oxygen Applied Datetime: 08/16/2020 03:28 Anesthesia Level Check: T11 Datetime: 08/16/2020 03:01 Stage of : Labor Respirations: 16 Datetime: 08/16/2020 02:45 VAGINAL EXAM Dilatation (cm): 7.0 Effacement (%): 90 Station: 1 Membrane Status: Ruptured Datetime: 08/16/2020 02:31 ANESTHESIA Anesthesia Plans: Epidural Epidural Positioning: Sitting Epidural Procedure: Test Dose Datetime: 08/16/2020 02:20 Anesthesia Interview: E Datetime: 08/16/2020 02:09 Monitor Interventions for FHR: Ultrasound Adjusted Membranes Rupture Method: Spontaneous Amniotic Fluid Color: Clear Amniotic Fluid Amount: Small Membrane Comments: SROM at 2330 08/15/20 MEDICATIONS Antibiotics: Ampicillin IV 2 Gm Medication Comments: for +GBS PATIENT CARE IV/Blood Work: IV Infusing per Order; IV Bag Number @ 1 Datetime: 08/16/2020 01:50 Anesthesia Comments: CLAIM REPRESENTATIVE called for epidural placement Datetime: 08/16/2020 01:49 Exam by: joshua Christian RNC Vaginal Bleeding: Normal Show Cervix, Consistency: Soft Cervix, Position: Anterior Vaginal Exam Comments: pt wanting epidural
== END 2020-08-18 11:45 | disposition home or self-care (01) | DRG 807 ==
LOC: WFO 00:42 → FBP 00:43 → WFO 01:27 → FBP 01:28
PROVIDERS: ADMIT Advanced Practice Midwife; ATTEND Advanced Practice Midwife
PROC: 10E0XZZ Delivery of Products of Conception, External Approach (ICD-10-PCS; principal; 2020-08-16)
PROC: 0HQ9XZZ Repair Perineum Skin, External Approach (ICD-10-PCS; 2020-08-16)
DX: O99.824 Streptococcus B carrier state complicating childbirth (principal); Z37.0 Single live birth; O70.0 First degree perineal laceration during delivery; O69.81X0 Labor and delivery complicated by cord around neck, without compression, not applicable or unspecified; Z3A.37 37 weeks gestation of pregnancy
CPT/HCPCS: 84112; 85025; 86850; 86900; 86901; 87635; 99213; A9270; J7120

== ENCOUNTER 2021-06-18 07:08 | Emergency (ER) | payer OTHER ==
--- NOTE | 2021-06-18 07:49 | ED Physician Documentation ---
History of Present Illness - Stated complaint Stated Complaint: FEVER/COUGH - Chief complaint Chief Complaint: General - History obtained from History obtained from: Patient - Additonal information Additional information: Patient comes emergency department chief complaint of runny nose, scratchy throat, and body aches since yesterday. She denies any fevers or chills. No cough. Her daughter was diagnosed with RSV last week and is still sick. Patient states she is mainly here because her work with the [employer] required a Covid test before she could come back. No other complaints at this time. Review of Systems Ten Systems: 10 systems reviewed and negative Constitutional: reports: Reviewed and negative Eyes: reports: Reviewed and negative Ears: reports: Reviewed and negative Nose: reports: Rhinorrhea / runny nose, Congestion Throat: reports: Sore throat Cardiac: reports: Reviewed and negative Respiratory: reports: Reviewed and negative GI: reports: Reviewed and negative : reports: Reviewed and negative Skin: reports: Reviewed and negative Musculoskeletal: reports: Reviewed and negative Neurologic: reports: Reviewed and negative Psychiatric: reports: Reviewed and negative Endocrine: reports: Reviewed and negative Immunocompromised: reports: Reviewed and negative PD PAST MEDICAL HISTORY - Past Medical History Cardiovascular: None Respiratory: None Neuro: None Endocrine/Autoimmune: None 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 Musculoskeletal: None Derm: None - Past Surgical History Past Surgical History: No - Present Medications Home Medications: Ambulatory Orders Medication Instructions Recorded Confirmed Ibuprofen 800 mg PO Q8HR #30 tablet 10/20/19 06/18/21 - Allergies Allergies/Adverse Reactions: Allergies Allergy/AdvReac Type Severity Reaction Status Date / Time No Known Drug Allergies Allergy Verified 06/18/21 07:13 - Social History Does the pt smoke?: No Smoking Status: Never smoker Does the pt drink ETOH?: No Does the pt have substance abuse?: No - Immunizations Immunizations are current?: Yes - POLST Patient has POLST: No PD ED PE NORMAL - Vitals Vital signs reviewed: Yes - General General: Alert and oriented X 3, No acute distress, Well developed/nourished - HEENT HEENT: Atraumatic, PERRL, EOMI, Moist mucous membranes, Pharynx benign (Mild erythema, otherwise negative.) - Neck Neck: Supple, no meningeal sign - Cardiac Cardiac: RRR, No murmur, Strong equal pulses - Respiratory Respiratory: No respiratory distress, Clear bilaterally - Derm Derm: Normal color, Warm and dry, No rash - Extremities Extremities: No deformity, No edema - Neuro Neuro: Alert and oriented X 3 - Psych Psych: Normal mood, Normal affect Results - Vitals Vitals: Vital Signs - 24 hr 06/18/21 07:14 Temperature 36.6 C Heart Rate 70 Respiratory 18 Rate Blood Pressure 104/63 O2 Saturation 98 Oxygen O2 Source Room air PD MEDICAL DECISION MAKING - ED course Complexity details: considered differential, d/w patient ED course: A Covid swab was done and is pending at the time of this dictation. Patient has been given instructions regarding her test and getting the results. The patient's symptoms are benign and she is well-appearing, and she is stable for discharge home. We have discussed the usual indications for return. Departure - Departure Disposition: 01 Home, Self Care Clinical Impression: Upper respiratory infection Qualifiers: URI type: unspecified viral URI Qualified Code(s): J06.9 - Acute upper respiratory infection, unspecified Condition: Stable Instructions: ED URI Viral Comments: Your symptoms are most likely due to one of the many viruses that are going around, causing upper respiratory type symptoms. Given the requirements of your workplace, you do have a Covid test pending. You should self quarantine until the results is done and negative. The test results should be complete in 24 to 72 hours. We will call with a positive test result, but the fastest way to get the negative result for confirmation is to go to the hospital website at [email or web address], click on the "[facility] tab, and sign up for the patient portal if any friends or family get sick and would like to have a Covid test done, but do not have signs or symptoms that would necessitate being hospitalized, we encourage testing through our coronavirus swabbing station. Please call [phone] to schedule an appointment. Forms: Activity restrictions
[2021-06-18 08:07] VITALS: BP 109/67
== END 2021-06-18 08:07 | disposition home or self-care (01) ==
LOC: ED 07:08
DX: J06.9 Acute upper respiratory infection, unspecified (principal); Z20.822 Contact with and (suspected) exposure to COVID-19
CPT/HCPCS: 99282; 99283

== ENCOUNTER 2022-01-16 08:21 | Emergency (ER) | payer MEDICAID, OTHER ==
--- NOTE | 2022-01-16 08:55 | ED Physician Documentation ---
PD HPI URI - Stated complaint Stated Complaint: FEVER, COUGHING UP BLOOD, CHILLS - Chief complaint Chief Complaint: Resp - History obtained from History obtained from: Patient - History of Present Illness Timing - onset: How many days ago (2-3) Timing details: Abrupt onset, Still present Associated symptoms: Fever, Chills, Ear pain (right), Sinus pain (frontal and maxillary with purulent drainage.), Productive cough (with sputum greenish/white, and then this morning had some blood streaks and small clot when coughed sputum.) Contributing factors: Travel (went to [place] for a week and returned Thursday. Ill soon after back.). No: Sick contact, Unimmunized Similar symptoms before: Has not had sx before Recently seen: Not recently seen (did home covid test that was negative.) Review of Systems Constitutional: reports: Fever, Chills, Myalgias Nose: reports: Congestion, Sinus pressure / pain Throat: denies: Sore throat Respiratory: reports: Cough, Hemoptysis (just this morning, small clot and streaks (she showed me a picture of it in her sink).). 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 Musculoskeletal: None Derm: None - Past Surgical History Past Surgical History: No - Present Medications Home Medications: Ambulatory Orders Medication Instructions Recorded Confirmed Ibuprofen 800 mg PO Q8HR #30 tablet 10/20/19 06/18/21 Albuterol Sulf [Ventolin Hfa 1 - 2 puffs INH Q4HR PRN #1 inhaler 01/16/22 Inhaler] Amoxicillin 500 mg PO TID #21 cap 01/16/22 Benzonatate [Tessalon] 100 mg PO TID PRN #20 cap 01/16/22 Cetirizine [ZyrTEC] 10 mg PO BID #15 tablet 01/16/22 - Allergies Allergies/Adverse Reactions: Allergies Allergy/AdvReac Type Severity Reaction Status Date / Time No Known Drug Allergies Allergy Verified 06/18/21 07:13 - Social History Does the pt smoke?: No Smoking Status: Never smoker Does the pt drink ETOH?: No Does the pt have substance abuse?: No - Immunizations Immunizations are current?: Yes - POLST Patient has POLST: No PD ED PE NORMAL - Vitals Vital signs reviewed: Yes - General General: Alert and oriented X 3, No acute distress, Well developed/nourished - HEENT HEENT: Pharynx benign. No: Ears normal (left is normal. right with bulging red TM without perforation.) - Neck Neck: Supple, no meningeal sign, No adenopathy - Cardiac Cardiac: RRR, No murmur - Respiratory Respiratory: Clear bilaterally - Abdomen Abdomen: Soft, Non tender - Derm Derm: Normal color, Warm and dry, No rash - Neuro Neuro: Alert and oriented X 3, No motor deficit, Normal speech Results - Vitals Vitals: Vital Signs - 24 hr 01/16/22 10:37 Temperature 36.9 C Heart Rate 58 L Respiratory 20 Rate Blood Pressure 106/71 O2 Saturation 98 Oxygen O2 Source Room air - Labs Labs: Laboratory Tests 01/16/22 08:55 SARS-CoV-2 (PCR) NOT DETECTED - Rads (name of study) chest xray Radiology: Prelim report reviewed (no acute cardiopulmonary process.), See rad report PD MEDICAL DECISION MAKING - ED course Complexity details: reviewed results, considered differential (URI but also sounds like bacterial ear infection/sinusitis. Can get CXR to ensure no pneumon ia with the hemoptysis, and COVID reference test. ), d/w patient Departure - Departure Disposition: 01 Home, Self Care Clinical Impression: Hemoptysis Upper respiratory infection Qualifiers: URI type: unspecified URI Qualified Code(s): J06.9 - Acute upper respiratory infection, unspecified Otitis media Qualifiers: Otitis media type: suppurative Chronicity: acute Laterality: right Recurrence: non-recurrent Spontaneous tympanic membrane rupture: without spontaneous rupture Qualified Code(s): H66.001 - Acute suppurative otitis media without spontaneous rupture of ear drum, right ear Condition: Stable Record reviewed to determine appropriate education?: Yes Prescriptions: Albuterol Sulf [Ventolin Hfa Inhaler] 1 - 2 puffs INH Q4HR PRN #1 inhaler PRN Reason: Shortness Of Air/Wheezing Amoxicillin 500 mg PO TID #21 cap Benzonatate [Tessalon] 100 mg PO TID PRN #20 cap PRN Reason: Cough Cetirizine [ZyrTEC] 10 mg PO BID #15 tablet Comments: Your chest x-ray is clear without any signs of pneumonia or collapsed lung or fluid around the lungs. Given your cough and congestion and some blood in your sputum, it is clear that your bronchials are irritated. This can be all a viral illness though you do wonder about a bacterial component. Your ear is also showing pressure fluid and redness suggestive of an ear infection. Again could be viral versus bacterial. We can treat with amoxicillin 3 times a day for a week for bacterial infection. Stay well-hydrated. Tylenol or ibuprofen for fevers and pains. Use albuterol inhaler 2 puffs 4 times a day to help with improved airflow and less cough. Add benzonatate/Tessalon if needed for cough. It would also be prudent to use an antihistamine such as cetirizine twice daily for the next week given your congestion to help with that. I transmitted the prescriptions to [facility] pharmacy. Your COVID test did actually result already and was negative. Presume other initial viral illness and then the concomitant possible bacterial bronchial and ear infection. Discharge Date/Time: 01/16/22 10:39
[2022-01-16] MEDS ORDERED: AMOXICILLIN 250 MG CAPSULE PO STA (09:15)
[2022-01-16] MEDS ORDERED: BENZONATATE 100 MG CAPSULE PO STA (09:15)
[2022-01-16] MEDS ORDERED: CETIRIZINE 10 MG TABLET PO STA (09:16)
--- NOTE | 2022-01-16 09:37 | XRAY Report ---
PROCEDURE: Chest 1 View X-Ray INDICATIONS: cough and hemoptysis TECHNIQUE: One view of the chest was acquired. COMPARISON: None FINDINGS: Surgical changes and devices: None. Lungs and pleura: No pleural effusions or pneumothorax. Lungs are clear. Mediastinum: Mediastinal contours appear normal. Heart size is normal. Bones and chest wall: No suspicious bony lesions. Overlying soft tissues appear unremarkable. IMPRESSION: No evidence acute pulmonary process. Reviewed by: Ryan Andrade MD on 01/16/2022 9:35 AM PDT Approved by: Ryan Andrade MD on 01/16/2022 9:35 AM PDT Station ID: [id number]
[2022-01-16 10:38] VITALS: BP 106/71
== END 2022-01-16 10:39 | disposition home or self-care (01) ==
LOC: ED 08:21
DX: J06.9 Acute upper respiratory infection, unspecified (principal); H66.001 Acute suppurative otitis media without spontaneous rupture of ear drum, right ear; R04.2 Hemoptysis; Z20.822 Contact with and (suspected) exposure to COVID-19
CPT/HCPCS: 71045; 87635; 99284; A9270

== ENCOUNTER 2022-09-23 15:41 | Outpatient (CLI) | payer MEDICAID ==
[2022-09-23 17:35] LABS: BASOPHILS # (AUTO) 0.1 10^3/uL (0.0-0.1); BASOPHILS % (AUTO) 0.9 %; EOSINOPHILS # (AUTO) 0.1 10^3/uL (0.0-0.7); EOSINOPHILS % (AUTO) 0.8 %; HCT - HEMATOCRIT 46.9 % (37.0-47.0); LYMPHOCYTES # (AUTO) 1.5 10^3/uL (1.5-3.5); MEAN CORPUSCULAR VOLUME 87.5 fL (81.0-99.0); MEAN PLATELET VOLUME 8.5 fL (7.9-10.8); MONOCYTES # (AUTO) 0.3 10^3/uL (0.0-1.0); MONOCYTES % (AUTO) 4.9 %; NEUTROPHILS # (AUTO) 4.5 10^3/uL (1.5-6.6); NEUTROPHILS % (AUTO) 70.2 %; PLT - PLATELET COUNT 346 10^3/uL (130-450); RED BLOOD COUNT 5.36 10^6/uL (4.20-5.40); RED CELL DISTRIBUTION WIDTH 13.1 % (12.0-15.0); WHITE BLOOD COUNT 6.4 x10^3/uL (4.8-10.8)
[2022-09-23 18:13] LABS: ALBUMIN 4.5 g/dL (3.2-5.5); ALBUMIN/GLOBULIN RATIO 1.6 (1.0-2.2); BILIRUBIN,TOTAL 0.7 mg/dL (0.2-1.0); CREATININE 0.9 mg/dL (0.4-1.0); POTASSIUM 3.9 mmol/L (3.5-5.0); TOTAL PROTEIN 7.4 g/dL (6.7-8.2)
[2022-09-23 18:18] LABS: THYROID STIMULATING HORMONE 2.31 uIU/mL (0.34-5.60)
[2022-09-23 19:24] LABS: BACTERIAL VAGINOSIS DNA NEGATIVE (NEGATIVE); CANDIDA GLABRATA DNA NEGATIVE (NEGATIVE); CANDIDA GROUP DNA NEGATIVE (NEGATIVE); CANDIDA KRUSEI DNA NEGATIVE (NEGATIVE); TRICHOMONAS VAGINALIS DNA NEGATIVE (NEGATIVE)
[2022-09-23 20:43] LABS: CHLAMYDIA TRACHOMATIS DNA NEGATIVE (NEGATIVE); NEISSERIA GONORRHOEAE DNA NEGATIVE (NEGATIVE)
[2022-09-24 03:09] LABS: HIV SCREEN 4TH GENERATION Non Reactive (Non Reactive)
[2022-09-24 05:10] LABS: RPR Non Reactive (Non Reactive)
== END 2022-09-23 15:42 | disposition home or self-care (01) ==
LOC: LAB.N 15:41
PROVIDERS: ATTEND Physician Assistant
DX: R10.2 Pelvic and perineal pain (principal); L65.9 Nonscarring hair loss, unspecified
CPT/HCPCS: 36415; 80053; 81514; 84443; 85025; 86592; 87389; 87491; 87591; 87661

== ENCOUNTER 2022-10-28 13:45 | Outpatient (CLI) | payer MEDICAID ==
--- NOTE | 2022-10-28 18:21 | CT Report ---
PROCEDURE: ABDOMEN/PELVIS WO INDICATIONS: RIGHT FLANK PAIN TECHNIQUE: Noncontrast 5 mm thick sections acquired from the diaphragms to the symphysis. 5 mm coronal and sagi ttal reformats were then performed. For radiation dose reduction, the following was used: automated exposure control, adjustment of mA and/or kV according to patient size. COMPARISON: CT abdomen and pelvis with contrast dated 11/10/2017. FINDINGS: Image quality: Excellent. ABDOMEN: Lung bases: Lung bases are clear. Heart size is normal. Solid organs: Liver and spleen are normal in size. Gallbladder is unremarkable without calcified ga llstones. Pancreas is normal in contours. No adrenal nodules. Kidneys are normal in size, without hydronephrosis or nephrolithiasis. Peritoneum and bowel: Unenhanced bowel loops demonstrate normal wall thickness and caliber. No free fluid or air. Nodes and vessels: No retroperitoneal or mesenteric adenopathy by size criteria. Aorta and inferior vena cava are normal in caliber. Miscellaneous: No ventral hernias. PELVIS: Genitourinary: Bladder wall thickness is normal. Miscellaneous: No inguinal hernias or adenopathy. Bones: No suspicious bony lesions. No vertebral body compression fractures. IMPRESSION: 1. No renal stones, ureteral stones, or hydronephrosis. 2. No evidence of acute abdominal process. Reviewed by: Ryan Andrade MD on 10/28/2022 6:20 PM PST Approved by: Ryan Andrade MD on 10/28/2022 6:20 PM PST Station ID: [id number]
== END 2022-10-28 13:46 | disposition home or self-care (01) ==
LOC: DI 13:45
PROVIDERS: ATTEND Physician Assistant
DX: R10.9 Unspecified abdominal pain (principal)